=== PATIENT | female | born 1950 | race Asian ===

== ENCOUNTER 2016-10-06 18:03 | Inpatient (IN) | payer OTHER ==
[~2016-10-06] VITALS: Ht 142.2 cm; Wt 54.1 kg
[2016-10-06 18:13] VITALS: BP 157/80
--- NOTE | 2016-10-06 18:23 | NUR ---
Patient ambulated to bed 4. RN evaluating patient at bedside.
--- NOTE | 2016-10-06 18:24 | NUR ---
DR ANGELES ASSESSING THE PT AT BEDSIDE
--- NOTE | 2016-10-06 18:24 | NUR ---
PT PRESENTS TO ER FOR EVALAUTION OF HEAVY VAGINAL BLEEDING. HX DM, HTN; DENIES N/V/D; SKIN IS PINK/WARM/DRY; AAOX4 WITH EVEN AND STEADY GAIT; LUNGS CLEAR BL; HR EVEN AND REGULAR; PT DENIES ANY FEVER, CP, SOB, OR COUGH AT THIS TIME; PATIENT STATES PAIN OF 0/10 AT THIS TIME; VSS; PATIENT POSITIONED FOR COMFORT; HOB ELEVATED; BEDRAILS UP X2; BED DOWN. ER MD MADE AWARE OF PT STATUS.
[2016-10-06] MEDS ORDERED: NACL 0.9% 1,000 ML IV ONE (18:30)
[2016-10-06 18:42] LABS: BASOPHILS # (AUTO) 0.2 K/uL (0.00-0.22); BASOPHILS % (AUTO) 1.9 % (0.0-2.0); EOSINOPHILS # (AUTO) 0.2 K/uL (0-0.4); EOSINOPHILS % (AUTO) 1.8 % (0.0-4.0); HEMATOCRIT 42.7 % (36-48); HEMOGLOBIN 14.2 g/dL (12.0-16.0); LYMPHOCYTES # (AUTO) 2.2 K/uL (2.5-16.5); LYMPHOCYTES % (AUTO) 21.3 % (20.5-51.1); MEAN CORPUSCULAR HEMOGLOBIN 30 pg (27-31); MEAN CORPUSCULAR HGB CONC 33 g/dL (33-37); MEAN CORPUSCULAR VOLUME 90 fL (80-94); MONOCYTES # (AUTO) 0.9 K/uL (0.8-1.0); MONOCYTES % (AUTO) 8.3 % (1.7-9.3); NEUTROPHILS # (AUTO) 6.9 K/uL (1.8-7.7); NEUTROPHILS % (AUTO) 66.7 % (42.2-75.2); PLATELET COUNT (AUTO) 275 K/uL (140-450); RED BLOOD CELL COUNT(AUTO) 4.75 MIL/uL (4.20-5.40); RED CELL DISTRIBUTION WIDTH 11.4 % (11.6-13.7); WHITE BLOOD COUNT (AUTO) 10.4 K/uL (4.8-10.8)
[2016-10-06 18:51] LABS: ANION GAP 14.3 (8-16); CALCIUM 7.6 mg/dL (8.5-10.1); CARBON DIOXIDE 28.5 mmol/L (21-32); CREATININE 0.8 mg/dL (0.6-1.3); POTASSIUM 3.8 mmol/L (3.5-5.1)
[2016-10-06 18:57] LABS: ALBUMIN 3.7 g/dL (3.4-5.0); TOTAL BILIRUBIN 0.6 mg/dL (0.0-1.0); TOTAL PROTEIN, SERUM 7.3 g/dL (6.4-8.2)
[2016-10-06 19:01] LABS: INR 1.1 (0.8-1.2); PARTIAL THROMBOPLASTIN TIME 23.9 secs (22-35.6); PROTHROMBIN TIME 10.4 secs (10.8-13.4)
--- NOTE | 2016-10-06 19:08 | NUR ---
DR BRITO ASSESSING THE PT AT BEDSIDE
--- NOTE | 2016-10-06 19:11 | NUR ---
REPORT GIVEN TO IVON DANIELS FOR TRANSFER OF CARE
--- NOTE | 2016-10-06 19:20 | NUR ---
REPORT RECEIVED FROM IVON EUGENE
--- NOTE | 2016-10-06 19:45 | NUR ---
VAG EXAM WITH DR WOODY. PT TOLERATED WELL.
--- NOTE | 2016-10-06 21:04 | NUR ---
Patient will be admitted to care of DR POLLOCK. Admited to TELE. Will go to room 106B. Belongings list completed. Report to IVON CUEVAS.
[2016-10-06 21:25] VITALS: BP 126/71
[2016-10-06] MEDS ORDERED: ONDANSETRON 4 MG/2 ML VIAL IVP PRN (21:25)
[2016-10-06] MEDS ORDERED: ACETAMINOPHEN 325 MG TAB PO PRN (21:25)
[2016-10-06] MEDS ORDERED: HYDROcodone/APAP 5/325 MG 1 TAB TAB PO PRN (21:25)
[2016-10-06] MEDS ORDERED: MORPHINE SULFATE 2 MG/ML SYR IVP PRN (21:25)
--- NOTE | 2016-10-06 21:25 | NUR ---
ADMITTED A 66F FROM ER. TELE PT. CAME BY CHRIS ACCOMPANIED BY DAUGHTER. CAME DUE TO VAGINAL BLEEDING X 1 DAY. PT said X3 ANNIKA PADS CHANGED UP TO THIS TIME. BUT NO C/O PAIN NOTED. HAS HX HTN AND DM BUT NOT ON ANY MEDICATION. SKIN INTACT. AMBULATORY. PLAN OF CARE DISCUSSED AND VERBALIZED UNDERSTANDING. ORIENTED TO HOSPITAL ROUTINES,CALL LIGHT PLACED WITHIN EASY REACH. WILL CONTINUE TO MONITOR. WILL FOLLOW UP WITH ADMIT ORDERS.
[2016-10-06 22:12] LABS: CHOL/HDL RATIO 2.9 (1-4.5)
[2016-10-06] MEDS: NACL 0.9% 1,000 ML IV SCH (22:30)
[2016-10-06 22:44] LABS: THYROID STIMULATING HORMONE 3.22 uIU/mL (0.34-3.76)
--- NOTE | 2016-10-06 22:45 | NUR ---
JI GARCIA ,[employer] RECRUITER DR. LOTT CALLED BACK. WILL ORDER DIET.
--- NOTE | 2016-10-06 23:02 | NUR ---
PT HAD SOME CRANBERRY JUICE. BUT INSTRUCTED THAT AFTER MN NPO. VERBALIZED UNDERSTANDING.
[2016-10-07] VITALS: BP 120/65
--- NOTE | 2016-10-07 00:30 | NUR ---
PT INSTRUCTED TO BE NPO FROM MN. VERBALIZED UNDERSTANDING. THEN ASSISTED TO BATHROOM ,VOIDED AND NO VAGINAL BLEEDING AT THIS TIME.
--- NOTE | 2016-10-07 01:45 | NUR ---
ASSISTED TO BATHROOM .VOIDED . NO VAGINAL BLEEDING NOTED. WILL CONTINUE TO MONITOR.
--- NOTE | 2016-10-07 03:15 | NUR ---
MADE AROUNDS. SLEEPING AT THIS TIME. NO S/S OF ANY DISCOMFORT NOTED.
[2016-10-07 04:05] VITALS: BP 109/57
--- NOTE | 2016-10-07 04:05 | NUR ---
AWAKE, VITAL SIGNS TAKEN. STABLE. WILL CONTINUE TO MONITOR.
--- NOTE | 2016-10-07 06:00 | NUR ---
PT HAD ONLY X1 PERIPAD CHANGED WITH VAGINAL BLEEDING ASIDE FROM THE X2 REPORTED BY DAUGHTER .
--- NOTE | 2016-10-07 06:40 | NUR ---
DAUGHTER CAME BACK. INSTRUCTED ALSO THAT PT CAN'T HAVE ANY FOOD NOR WATER AT THIS TIME. VERBALIZED UNDERSTANDING
--- NOTE | 2016-10-07 07:13 | NUR ---
ENDORSED PT IN STABLE CONDITION TO AM NURSE.
--- NOTE | 2016-10-07 07:14 | NUR ---
RECEIVED REPORT FROM THE DIECAST MACHINE OPERATOR NURSE AT BEDSIDE FOR CONTINUITY OF CARE. PT IS AWAKE W/ DAUGHTER AT BEDSIDE. I INTRODUCED MYSELF AND UPDATED THE BOARD. PT HAS AN IV ON R AC 20G, NS RUNNING AT 10ML/HR. NO MORE BLEEDING. SKIN INTACT. PT HAS SCD'S ON. NO COMPLAINTS AT THIS TIME. WILL CONTINUE TO MONITOR PT.
[2016-10-07 07:18] LABS: BASOPHILS # (AUTO) 0.1 K/uL (0.00-0.22); BASOPHILS % (AUTO) 1.3 % (0.0-2.0); EOSINOPHILS # (AUTO) 0.1 K/uL (0-0.4); EOSINOPHILS % (AUTO) 1.6 % (0.0-4.0); HEMATOCRIT 40.3 % (36-48); HEMOGLOBIN 13.7 g/dL (12.0-16.0); LYMPHOCYTES # (AUTO) 1.8 K/uL (2.5-16.5); LYMPHOCYTES % (AUTO) 23.8 % (20.5-51.1); MEAN CORPUSCULAR HEMOGLOBIN 31 pg (27-31); MEAN CORPUSCULAR HGB CONC 34 g/dL (33-37); MEAN CORPUSCULAR VOLUME 90 fL (80-94); MONOCYTES # (AUTO) 0.5 K/uL (0.8-1.0); MONOCYTES % (AUTO) 6.9 % (1.7-9.3); NEUTROPHILS # (AUTO) 5.1 K/uL (1.8-7.7); NEUTROPHILS % (AUTO) 66.4 % (42.2-75.2); PLATELET COUNT (AUTO) 247 K/uL (140-450); RED BLOOD CELL COUNT(AUTO) 4.48 MIL/uL (4.20-5.40); RED CELL DISTRIBUTION WIDTH 11.4 % (11.6-13.7); WHITE BLOOD COUNT (AUTO) 7.6 K/uL (4.8-10.8)
--- NOTE | 2016-10-07 07:30 | NUR ---
V/S WITHIN NORMAL RANGE. BP SLIGHTLY ELEVATED. 145/72. DENIES PAIN AT THIS TIME. DENIES BLEEDING AT THIS TIME. WILL BE BACK TO ADMINISTER MORNING MEDS.
[2016-10-07 07:44] LABS: ANION GAP 11.9 (8-16); CALCIUM 8.5 mg/dL (8.5-10.1); CREATININE 0.6 mg/dL (0.6-1.3); POTASSIUM 3.9 mmol/L (3.5-5.1)
[2016-10-07 07:46] LABS: MAGNESIUM 1.9 mg/dL (1.8-2.4); PHOSPHORUS 4.1 mg/dL (2.5-4.9)
[2016-10-07 08:00] VITALS: BP 145/72
--- NOTE | 2016-10-07 08:00 | NUR ---
DR. HULL WAS HERE. HE SAW PT. SCOW HAND HAD ADVISED PT AND DAUGHTER ABOUT NPO AFTER MIDNIGHT. DAUGHTER FORGOT. APPARENTLY, PT HAD DRANK SOY MILK THIS MORNING THAT THE DAUGHTER HAD BROUGHT. PER MD, SHE WILL HAVE SURGERY LATER THIS AFTERNOON, POSSIBLY 3 OR 4 PM.
--- NOTE | 2016-10-07 08:58 | NUR ---
IV PUMP BEEPING. PT HAD BENT HER ARM. I TURNED OFF THE ALARM AND RESTARTED THE IV. PER PT, SHE WILL TRY AND REMEMBER TO KEEP HER ARM STRAIGHT. MET ALL NEEDS. DAUGHTER AT BEDSIDE.
--- NOTE | 2016-10-07 11:14 | NUR ---
PT IS RESTING COMFORTABLY. DAUGHTER IS AT BEDSIDE. DENIES PAIN. NO COMPLAINTS. ALL NEEDS MET. WILL CONTINUE TO MONITOR PT.
[2016-10-07 12:00] VITALS: BP 147/75
--- NOTE | 2016-10-07 13:00 | NUR ---
PT IS RESTING COMFORTABLY WITH DAUGHTER AT BEDSIDE. NO SIGNS OF DISTRESS. NO COMPLAINTS. HAD A LONG CONVERSATION ABOUT F/U WITH PRIMARY DR. AT THIS TIME, SHE DOES NOT HAVE ONE. I EXPLAINED THE IMPORTANCE OF ESTABLISHING A PCP AND IMPORTANCE OF BEING F/U WITH HTN AND DM. PT AND DAUGHTER VERBALIZED UNDERSTANDING.
--- NOTE | 2016-10-07 14:45 | NUR ---
HAD PT SIGN THE CONSENT FOR D & C. PT VERBALIZED UNDERSTANDING.
--- NOTE | 2016-10-07 15:25 | NUR ---
2 OR NURSES HERE TO HYDROTEL OPERATOR PT FOR THE PROCEDURE. PT SL'D. ALL READY TO GO. CONSENT IN CHART.
[2016-10-07] MEDS ORDERED: PROPOFOL 200 MG/20 ML VIAL IV ONE (15:35)
[2016-10-07] MEDS ORDERED: fentaNYL 0.05 MG/ML VIAL ONE (15:51)
[2016-10-07] MEDS ORDERED: MIDAZOLAM 2 MG/2 ML VIAL ONE (15:51)
[2016-10-07] MEDS ORDERED: METOCLOPRAMIDE 10 MG/2 ML INJ VIAL IVP PRN (15:55)
[2016-10-07] MEDS ORDERED: MIDAZOLAM 2 MG/2 ML VIAL IV ONE (15:55)
[2016-10-07] MEDS ORDERED: MORPHINE SULFATE 4 MG/ML SYR IVP PRN ×2 (15:55)
[2016-10-07] MEDS ORDERED: MORPHINE SULFATE 2 MG/ML SYR IVP PRN (15:55)
[2016-10-07] MEDS ORDERED: ACETAMINOPHEN/CODEINE 300/30MG 1 TAB PO PRN (16:05)
[2016-10-07] MEDS ORDERED: MORPHINE SULFATE 4 MG/ML SYR IM/IVP PRN (16:05)
[2016-10-07] MEDS ORDERED: ONDANSETRON 4 MG/2 ML VIAL IVP PRN (16:05)
[2016-10-07] MEDS ORDERED: IBUPROFEN 800 MG TAB PO PRN (16:05)
[2016-10-07 17:00] VITALS: BP 148/84
--- NOTE | 2016-10-07 17:00 | NUR ---
PT ARRIVED ON THE FLOOR AFTER HER PROCEDURE. PT IS STILL VERY DROWSY. NO COMPLAINTS OF PAIN. DAUGHTER AT BEDSIDE. V/S : 148/84; 80 HR; 97% O2; 97.6 F; 18R. WILL CONTINUE TO MONITOR PT. Addendum: 10/07/16 at 1824 by Radha Roth RN V/S: 1515: 157/84; 77; 97%; 97.9 1530: 154/81; 82; 96%; 97.9 1545: 146/82; 84; 97%; 97.9 1600: 132/70; 82; 98%; 98.3
--- NOTE | 2016-10-07 18:20 | NUR ---
FAMILY AT BEDSIDE. PT IS AWAKE AND ALERT. HUNGRY. FINISHED ALL DIET AND ASKED FOR MORE. WILL INCREASE TO REG DIET IN THE MORNING.
[2016-10-07] MEDS: NACL 0.9% 1,000 ML IV SCH (18:23)
--- NOTE | 2016-10-07 19:04 | NUR ---
ENDORSED PT TO THE SPRINKLER FITTER APPRENTICE NURSE AT BEDSIDE FOR CONTINUITY OF CARE. PT IS IN STABLE CONDITION.
--- NOTE | 2016-10-07 19:30 | NUR ---
RECEIVED PT IN STABLE CONDITION FROM AM NURSE. AWAKE ,ALERT AND ORIENTED X4. ON TELE MONITOR-SR. FAMILY MEMBERS AT BEDSIDE. NO C/O PAIN . S/P D & C. INSTRUCTED PT TO CALL IF NEED TO GO BATHROOM. VERBALIZED UNDERSTANDING. PLAN OF CARE DISCUSSED. DIET TO ADVANCE IF TOLERATED CLEAR LIQUID. IVF INFUSING WELL ON THE RT AC #20. CALL LIGHT PLACED WITHIN EASY REACH. WILL CONTINUE TO MONITOR.
[2016-10-07 20:00] VITALS: BP 143/79
--- NOTE | 2016-10-07 22:00 | NUR ---
ASSISTED UP TO BATHROOM. WITH SMALL PINK TINGED VAGINAL BLEEDING ON VOIDING.
--- NOTE | 2016-10-07 23:13 | NUR ---
ENDORSED PT TO IVON GARZA IN STABLE CONDITION FOR CONTINUITY OF CARE.
[2016-10-08] VITALS: BP 139/73
--- NOTE | 2016-10-08 | NUR ---
TOOK OVER FROM MASON RN CONTINUITY OF CARE. AWAKEN PT FOR V/S, NO C/O PAIN. IV SITE IS CLEAR. INSTRUCTED TO CALL IF NEEDED ASSISTANCE. CALL LIGHT WITHIN REACH. SAVANAURG
--- NOTE | 2016-10-08 02:00 | NUR ---
RESTING QUIETLY WHEN CHECKED.
[2016-10-08] MEDS: NACL 0.9% 1,000 ML IV SCH (03:02)
[2016-10-08 04:00] VITALS: BP 135/73
--- NOTE | 2016-10-08 04:00 | NUR ---
V/S TAKEN OFFERS NO COMPLAINES.SR ON THE MONITOR.
[2016-10-08 06:09] LABS: BASOPHILS % (AUTO) 0.5 % (0.0-2.0); EOSINOPHILS # (AUTO) 0.1 K/uL (0-0.4); EOSINOPHILS % (AUTO) 1.2 % (0.0-4.0); HEMATOCRIT 38.2 % (36-48); HEMOGLOBIN 12.8 g/dL (12.0-16.0); LYMPHOCYTES # (AUTO) 1.4 K/uL (2.5-16.5); LYMPHOCYTES % (AUTO) 15.5 % (20.5-51.1); MEAN CORPUSCULAR HEMOGLOBIN 30 pg (27-31); MEAN CORPUSCULAR HGB CONC 33 g/dL (33-37); MEAN CORPUSCULAR VOLUME 90 fL (80-94); MONOCYTES # (AUTO) 0.5 K/uL (0.8-1.0); MONOCYTES % (AUTO) 5.4 % (1.7-9.3); NEUTROPHILS # (AUTO) 6.9 K/uL (1.8-7.7); NEUTROPHILS % (AUTO) 77.4 % (42.2-75.2); PLATELET COUNT (AUTO) 248 K/uL (140-450); RED BLOOD CELL COUNT(AUTO) 4.26 MIL/uL (4.20-5.40); RED CELL DISTRIBUTION WIDTH 11.5 % (11.6-13.7); WHITE BLOOD COUNT (AUTO) 8.9 K/uL (4.8-10.8)
[2016-10-08 06:24] LABS: ALBUMIN 3.1 g/dL (3.4-5.0); MAGNESIUM 1.7 mg/dL (1.8-2.4); PHOSPHORUS 3.9 mg/dL (2.5-4.9)
[2016-10-08 06:32] LABS: ANION GAP 11.9 (8-16); CALCIUM 7.9 mg/dL (8.5-10.1); CARBON DIOXIDE 24.8 mmol/L (21-32); CREATININE 0.6 mg/dL (0.6-1.3); POTASSIUM 3.7 mmol/L (3.5-5.1)
--- NOTE | 2016-10-08 06:33 | NUR ---
AWAKE PT STATED SHE IS OK. NO SIGNS OF DISTRESS.
--- NOTE | 2016-10-08 07:30 | NUR ---
RECEIVED REPORT FROM NIGHT NURSE. AOX4, RESTING IN BED COMFORTABLY. PLAN OF CARE DISCUSSED WITH PT AND DAUGHTER AT BEDSIDE, VERBALIZES UNDERSTANDING. IV SITE, ASYMPTOMATIC, PATENT AND INTACT. NO S/S OF DISTRESS. SAFETY MEASURES ENSURED.
--- NOTE | 2016-10-08 07:32 | NUR ---
PATIENT HAS BEEN SCREENED AND CATEGORIZED MODERATE NUTRITION RISK. PATIENT WILL BE SEEN WITHIN 3-5 DAYS OF ADMISSION. 10/09/16-10/11/[address]
[2016-10-08 08:00] VITALS: BP 141/73
[2016-10-08] MEDS ORDERED: IBUP800T99 PO (08:05)
[2016-10-08 08:12] VITALS: BP 141/73
[2016-10-08] MEDS ORDERED: MAGNESIUM OXIDE 400 MG TAB PO SCH (09:00)
--- NOTE | 2016-10-08 09:00 | NUR ---
VS NOTED. PT OBSERVED PERFORMING AMBULATING AND PERFORMING ADLS. MEDICATION ADMINISTERED WITH EDUCATION, PT TOLERATED WELL. SAFETY MEASURES ENSURED.
--- NOTE | 2016-10-08 09:30 | NUR ---
DISCHARGE EDUCATION, INSTRUCTIONS AND RX GIVEN AND DISCUSSED WITH PT AND DAUGHTER. PT VERBALIZES UNDERSTANDING AND COMPLIANCE. ALL FORMS SIGNED. IV SITE D/C'D WITH CANNULA INTACT.
--- NOTE | 2016-10-08 09:45 | NUR ---
DC PT HOME AT THIS TIME IN STABLE CONDITION.
== END 2016-10-08 09:45 | disposition home or self-care (01) | DRG 745 ==
LOC: MED 18:03 → MTU 20:45
PROVIDERS: ADMIT Family Medicine; ATTEND Family Medicine
PROC: 0UDB7ZZ Extraction of Endometrium, Via Natural or Artificial Opening (ICD-10-PCS; principal; 2016-10-07 15:30)
DX: N95.0 Postmenopausal bleeding (principal); R58 Hemorrhage, not elsewhere classified; E11.9 Type 2 diabetes mellitus without complications; I10 Essential (primary) hypertension; Z85.3 Personal history of malignant neoplasm of breast; Z83.3 Family history of diabetes mellitus
CPT/HCPCS: 36415; 71010; 76856; 80048; 80053; 82040; 82948; 83036; 83735; 84100; 84436; 84443; 84703; 85025; 85610; 85730; 86886; 86900; 86901; 87081; 93005; 96360; 99285; J2250; J2704; J3010; J7030; J7120; Q0092